=== PATIENT | male | born 1955 | race African-American/Black ===

== ENCOUNTER 2017-04-14 13:52 | Emergency (ER) | payer MEDICAID ==
[~2017-04-14] VITALS: Ht 180.3 cm; Wt 82.0 kg
[2017-04-14 14:42] VITALS: BP 125/85
[2017-04-14 15:34] LABS: CLARITY URINE TURBID (CLEAR); COLOR URINE DARK YELLOW (YELLOW); KETONES URINE 2+ (NEGATIVE); LEUKOCYTE ESTERASE URINE 3+ (NEGATIVE); NITRITE URINE POSITIVE (NEGATIVE); OCCULT BLOOD URINE 3+ (NEGATIVE); PH URINE 7.5 (4.5-8.0); PROTEIN URINE 2+ (NEGATIVE); SPECIFIC GRAVITY URINE 1.023 (1.005-1.030)
== END 2017-04-14 16:03 | disposition home or self-care (01) ==
LOC: ER 14:48
DX: N39.0 Urinary tract infection, site not specified (principal)
CPT/HCPCS: 81001; 99283

== ENCOUNTER 2017-04-17 22:05 | Emergency (ER) | payer MEDICAID ==
[~2017-04-17] VITALS: Ht 180.3 cm; Wt 79.0 kg
[2017-04-17 22:31] VITALS: BP 140/77
[2017-04-17 23:01] LABS: CLARITY URINE CLEAR (CLEAR); COLOR URINE DARK YELLOW (YELLOW); KETONES URINE NEGATIVE (NEGATIVE); LEUKOCYTE ESTERASE URINE 1+ (NEGATIVE); NITRITE URINE POSITIVE (NEGATIVE); OCCULT BLOOD URINE NEGATIVE (NEGATIVE); PH URINE 7.5 (4.5-8.0); PROTEIN URINE NEGATIVE (NEGATIVE); SPECIFIC GRAVITY URINE 1.023 (1.005-1.030)
== END 2017-04-17 23:33 | disposition home or self-care (01) ==
LOC: ER 22:30
DX: N39.0 Urinary tract infection, site not specified (principal)
CPT/HCPCS: 81001; 99283

== ENCOUNTER 2017-04-19 05:02 | Emergency (ER) | payer MEDICAID ==
[~2017-04-19] VITALS: Ht 180.3 cm; Wt 78.0 kg
[2017-04-19] MEDS ORDERED: SODIUM CHLORIDE 0.9% 1,000 ML IV ONE (07:45)
[2017-04-19 08:17] LABS: KETONES URINE 1+ (NEGATIVE); LEUKOCYTE ESTERASE URINE 1+ (NEGATIVE); NITRITE URINE POSITIVE (NEGATIVE); OCCULT BLOOD URINE NEGATIVE (NEGATIVE); PH URINE 5.5 (4.5-8.0); PROTEIN URINE NEGATIVE (NEGATIVE); SPECIFIC GRAVITY URINE 1.014 (1.005-1.030)
[2017-04-19 08:18] LABS: CLARITY URINE CLEAR (CLEAR); COLOR URINE ORANGE (YELLOW)
[2017-04-19 08:29] LABS: BASOPHILS % 0.3 % (0.0-2.0); CHLORIDE 101 mEq/L (98-107); EOSINOPHILS % 0.2 % (0.0-5.0); HEMATOCRIT. 40.1 % (42.0-52.0); HEMOGLOBIN. 13.1 g/dL (14.0-18.0); LYMPHOCYTES % 11.8 % (20.0-50.0); MEAN CORPUSCULAR HEMOGLOBIN 28.6 pg (28.0-32.0); MEAN CORPUSCULAR VOLUME 87.6 fL (80.0-94.0); MEAN PLATELET VOLUME 8.6 fl (7.4-10.4); MONOCYTES % 6.9 % (2.0-8.0); NEUTROPHILS % 80.8 % (40.0-76.0); PLATELET 349 x1000/uL (130-400); RED BLOOD CELL COUNT 4.58 mill/uL (4.7-6.1); RED CELL DISTRIBUTION WIDTH 13.3 % (11.6-14.6)
[2017-04-19 08:30] LABS: INR 1.1; PROTHROMBIN TIME 11.5 sec (9.4-11.6)
[2017-04-19] MEDS ORDERED: KETOROLAC 30MG/ML VIAL IV ONE (09:30)
[2017-04-19 11:23] VITALS: BP 148/92
[2017-09-22] MEDS ORDERED: NITR-87 PO (10:28)
[2017-09-22] MEDS ORDERED: PAPA1TAB10 PO (23:41)
== END 2017-04-19 11:24 | disposition home or self-care (01) ==
LOC: ER 05:02
DX: N30.90 Cystitis, unspecified without hematuria (principal); R03.0 Elevated blood-pressure reading, without diagnosis of hypertension; N28.1 Cyst of kidney, acquired; E80.7 Disorder of bilirubin metabolism, unspecified
CPT/HCPCS: 36415; 74176; 80053; 81001; 83605; 83690; 85025; 85610; 87086; 96361; 96374; 99285; J1885; J7030; Z7610

== ENCOUNTER 2017-08-28 18:57 | Emergency (ER) | payer MEDICAID ==
[~2017-08-28] VITALS: Ht 180.3 cm; Wt 78.0 kg
[2017-08-28] MEDS ORDERED: HYDROCODONE/ACETAMINOPHEN 5/325MG TABLET PO STA (20:06)
[2017-08-28 20:32] LABS: CLARITY URINE CLEAR (CLEAR); COLOR URINE YELLOW (YELLOW); KETONES URINE NEGATIVE (NEGATIVE); LEUKOCYTE ESTERASE URINE TRACE (NEGATIVE); NITRITE URINE NEGATIVE (NEGATIVE); OCCULT BLOOD URINE 3+ (NEGATIVE); PROTEIN URINE NEGATIVE (NEGATIVE); SPECIFIC GRAVITY URINE 1.007 (1.005-1.030); UROBILINOGEN URINE 0.2 E.U./dL (0.2-1.0)
[2017-08-28 20:44] LABS: BASOPHILS % 0.3 % (0.0-2.0); EOSINOPHILS % 2.4 % (0.0-5.0); HEMATOCRIT. 28.3 % (42.0-52.0); HEMOGLOBIN. 9.1 g/dL (14.0-18.0); MEAN CORPUSCULAR VOLUME 87.1 fL (80.0-94.0); MEAN PLATELET VOLUME 8.2 fl (7.4-10.4); NEUTROPHILS % 62.3 % (40.0-76.0); PLATELET 327 x1000/uL (130-400); RED BLOOD CELL COUNT 3.25 mill/uL (4.7-6.1); RED CELL DISTRIBUTION WIDTH 13.2 % (11.6-14.6)
[2017-08-28 20:50] LABS: CHLORIDE 108 mEq/L (98-107)
[2017-08-28 21:05] VITALS: BP 155/83
== END 2017-08-28 22:00 | disposition home or self-care (01) ==
LOC: ER 18:57
DX: N39.0 Urinary tract infection, site not specified (principal)
CPT/HCPCS: 36415; 80053; 81003; 83690; 85025; 99284